=== PATIENT | female | born 1950 | race Caucasian/White ===

== ENCOUNTER 2016-06-30 16:04 | Inpatient (IN) | payer OTHER ==
[2016-06-30 21:13] LABS: HEMOGLOBIN 11.7 gm/dl (12.3-15.3); RED BLOOD COUNT 3.97 M/UL (4.00-5.10); WHITE BLOOD COUNT 9.3 K/UL (4.5-11.0)
[2016-06-30 21:42] LABS: BUN/CREATININE RATIO 13 (0-10)
[2016-06-30] MEDS ORDERED: NORVASC 5 MG TAB5 MG PO (21:44)
[2016-06-30] MEDS ORDERED: PLAVIX 75 MG TA75 MG PO (21:45)
[2016-06-30] MEDS ORDERED: ASPIRIN EC81 MG PO (21:45)
[2016-06-30] MEDS ORDERED: FLUPHENAZINE PO (21:46)
[2016-06-30] MEDS ORDERED: FLONASE 0.05% N16 GM (21:47)
[2016-06-30] MEDS ORDERED: LEVEMIR 10100 UNITS/ SQ (21:48)
[2016-06-30] MEDS ORDERED: COZAAR100 MG PO (21:49)
[2016-06-30] MEDS ORDERED: GLUCOPHAGE500 MG PO (21:49)
[2016-06-30] MEDS ORDERED: PROTONIX40 MG PO (21:50)
[2016-06-30] MEDS ORDERED: CRESTOR20 MG PO (21:50)
[2016-06-30] MEDS ORDERED: LOPRESSOR50 MG PO (21:50)
[2016-06-30] MEDS ORDERED: PROAIR HFA8.5 GM INH (21:52)
[2016-06-30] MEDS ORDERED: ZETIA10 MG PO (21:52)
[2016-06-30] MEDS ORDERED: HYZAAR 100-12.1 EACH PO (21:58)
[2016-07-01 05:59] LABS: BUN/CREATININE RATIO 14 (0-10)
[2016-07-01] MEDS ORDERED: LOSARTAN POTAS100 MG PO (08:53)
== END 2016-07-01 11:44 | disposition home or self-care (01) | DRG 643 ==
LOC: MED SURG 4 16:04
PROVIDERS: ADMIT Emergency Medicine
DX: E22.2 Syndrome of inappropriate secretion of antidiuretic hormone (principal); G93.41 Metabolic encephalopathy; N17.9 Acute kidney failure, unspecified; Q61.02 Congenital multiple renal cysts; T43.595A Adverse effect of other antipsychotics and neuroleptics, initial encounter; E11.65 Type 2 diabetes mellitus with hyperglycemia; J44.9 Chronic obstructive pulmonary disease, unspecified; I10 Essential (primary) hypertension; E78.5 Hyperlipidemia, unspecified; E53.8 Deficiency of other specified B group vitamins; I70.1 Atherosclerosis of renal artery; I65.29 Occlusion and stenosis of unspecified carotid artery; F32.9 Major depressive disorder, single episode, unspecified; Z87.891 Personal history of nicotine dependence; Z79.84 Long term (current) use of oral hypoglycemic drugs; Z79.02 Long term (current) use of antithrombotics/antiplatelets; Z79.82 Long term (current) use of aspirin; Z79.4 Long term (current) use of insulin; Z79.899 Other long term (current) drug therapy; Z88.3 Allergy status to other anti-infective agents; Z88.5 Allergy status to narcotic agent; Z98.890 Other specified postprocedural states; Z83.3 Family history of diabetes mellitus
CPT/HCPCS: 36415; 71020; 80048; 80053; 82043; 82570; 82962; 83036; 84300; 85027; J7030

== ENCOUNTER 2021-01-31 05:30 | Inpatient (IN) | payer MEDICARE, OTHER ==
[~2021-01-31] VITALS: Ht 165.1 cm; Wt 58.5 kg
[~2021-01-31 05:30] MED LIST: ASPIRIN EC81 MG PO; COZAAR100 MG PO; CRESTOR20 MG PO; FLONASE 0.05% N16 GM; FLUPHENAZINE PO; GLUCOPHAGE500 MG PO; HYZAAR 100-12.1 EACH PO; LEVEMIR 10100 UNITS/ SQ; LOPRESSOR50 MG PO; LOSARTAN POTAS100 MG PO; NORVASC5 MG PO; PERCOCET 10-321 EACH PO; PLAVIX 75 MG TA75 MG PO; PROAIR HFA8.5 GM INH; PROTONIX40 MG PO; ZETIA10 MG PO
[2021-01-31] MEDS ORDERED: AMIODARONE HCL200 MG PO (06:00)
[2021-01-31] MEDS ORDERED: ESCITALOPRAM OXA5 MG PO (06:01)
[2021-01-31] MEDS ORDERED: ATORVASTATIN CA40 MG PO (06:01)
[2021-01-31] MEDS ORDERED: BUMETANIDE0.5 MG PO (06:01)
[2021-01-31] MEDS ORDERED: LANTUS100 UNIT/1 SQ (06:02)
[2021-01-31] MEDS ORDERED: FLUPHENAZINE PO (06:02)
[2021-01-31] MEDS ORDERED: MELATONIN3 MG PO (06:03)
[2021-01-31] MEDS ORDERED: ALLERGY RELIEF10 M1 PO (06:03)
[2021-01-31] MEDS ORDERED: TRADJENTA5 MG PO (06:04)
[2021-01-31] MEDS ORDERED: MULTI-VITAMIN1 EACH PO (06:04)
[2021-01-31] MEDS ORDERED: VALSARTAN40 MG PO (06:04)
[2021-01-31] MEDS ORDERED: FISH OIL 1,0001 EAC1 PO (06:06)
[2021-01-31] MEDS ORDERED: ELIQUIS 2.5 MG2.5 MG PO (06:06)
[2021-01-31] MEDS ORDERED: VITAMIN D325 MCG PO (06:06)
[2021-01-31] MEDS ORDERED: FISH OIL 1,0001 EACH PO (06:07)
[2021-01-31] MEDS ORDERED: MEGESTROL400 MG/11 PO (06:08)
[2021-01-31] MEDS ORDERED: POTASSIUM CHLO20 ME1 PO (06:09)
[2021-01-31] MEDS ORDERED: HUMALOG100 UNIT/1 SC (06:10)
[2021-01-31] MEDS ORDERED: FERROUS SULFAT325 M2 PO (06:10)
[2021-01-31] MEDS ORDERED: HYDROCODON-ACE1 EAC4 PO (06:11)
[2021-01-31] MEDS ORDERED: ZOFRAN 4 MG TAB4 MG PO (06:11)
[2021-02-01 14:07] LABS: HEMOGLOBIN 8.7 gm/dl (12.3-15.3); RED BLOOD COUNT 2.85 M/UL (4.00-5.10); WHITE BLOOD COUNT 10.4 K/UL (4.5-11.0)
--- NOTE | 2021-02-01 15:08 | NUR ---
contacted dr. barros regarding patient's potassium level of 2.8. new order noted for k/mg protocol.
[2021-02-02 10:05] LABS: HEMOGLOBIN 8.9 gm/dl (12.3-15.3); RED BLOOD COUNT 2.87 M/UL (4.00-5.10); WHITE BLOOD COUNT 8.8 K/UL (4.5-11.0)
--- NOTE | 2021-02-02 10:58 | NUR ---
PATIENT HAD CRITICAL LAB OF POTASSIUM 2.7. LAB VALUE WAS REPORTED TO PROVIDER WHO ORDERED HER POTASSIUM TO BE REPLACED PER PROTOCOL. WILL CONTINUE TO MONITOR.
[2021-02-03 06:10] LABS: HEMOGLOBIN 9.1 gm/dl (12.3-15.3); RED BLOOD COUNT 2.96 M/UL (4.00-5.10); WHITE BLOOD COUNT 8.3 K/UL (4.5-11.0)
--- NOTE | 2021-02-03 17:19 | NUR ---
CALLED TO REPORT A BLOOD PRESSURE OF 135/103 TO DOCTOR LILIANA. SHE STATED "OK, LETS MONITOR IT." WILL CONTINUE TO MONITOR.
--- NOTE | 2021-02-03 21:07 | NUR ---
2030 FOUND PT IS VOMIT, LAID OVER ON HER SIDE SET UP SUCTION AND CLEARED MOUTH AND SAT HER UP STRAIGHT. PT SOUNDED WET. V/S BP 137/49 HR 102 RR [address] POPE NOTIFIED; ORDER FOR STAT CHEST XRAY, ABG, PRO BNP DR. MUÑIZ STOPPED IN AND ORDERED FLUIDS DC'D CRITICAL LABS REPORTED AND DR. POPE NOTIFIED. ORDER TO INCREASE OXYGEN AND TITRATE TO KEEP GREATER THAN 92%, AND 0.5MG ATIVAN PO ONE TIME. PT RR HAVE DECREASED TO 26/MIN AND 0.5 ATIVAN WILL BE GIVEN.
--- NOTE | 2021-02-03 22:30 | NUR ---
CRITICAL LACTIC 47.[address] MUÑIZ KETONES NEGATIVE. HR 73 O2 98% RR 32 BP 143/71 ORDERS: BLOOD CULTURES X2 UA MICROSCOPIC, URINE CULTURE. MERREM 1G Q8 FOR SEVERE SEPSIS PRESUMABLY LUNG, PHARMACY TO ADJUST DOSE NEEDED. DR. MUÑIZ ASK THAT I MAKE DR. POPE AWARE OF FINDINGS. I HAVE TRIED TO CALL HIM TWICE WITH NO ANSWER. WILL KEEP TRYING TO LET HIM KNOW THE ABOVE ORDERS FROM DR. MUÑIZ.
[2021-02-04 04:09] LABS: HEMOGLOBIN 8.4 gm/dl (12.3-15.3); RED BLOOD COUNT 2.74 M/UL (4.00-5.10); WHITE BLOOD COUNT 16.8 K/UL (4.5-11.0)
[2021-02-04 18:41] LABS: CAMPYLOBACTER Not Detected (Negative); E.COLI 0157 Not Detected (Negative); ENTEROAGGREGATIVE E.COLI (EAEC Not Detected (Negative); ENTEROPATHOGENIC E.COLI (EPEC) Not Detected (Negative); ENTEROTOXIGENIC E.COLI (ETEC) Not Detected (Negative); PLESIOMONAS SHIGELLOIDES Not Detected (Negative); SALMONELLA Not Detected (Negative); SHIGA-LIK TOX.PRO.E.COLI (STEC Not Detected (Negative); VIBRIO Not Detected (Negative); VIBRIO CHOLERAE Not Detected (Negative); YERSINIA ENTEROCOLITICA Not Detected (Negative)
[2021-02-04 18:42] LABS: ADENOVIRUS F 40/41 Not Detected (Negative); ASTROVIRUS Not Detected (Negative); CRYPTOSPORIDIUM Not Detected (Negative); ENTAMOEBA HISTOLYTICA Not Detected (Negative); GIARDIA LAMBLIA Not Detected (Negative); NOROVIRUS GI/GII Not Detected (Negative); ROTOVIRUS A Not Detected (Negative); SAPOVIRUS Not Detected (Negative); SHIG/ENTEROINVAS.ECOLI (EIEC) Not Detected (Negative)
[2021-02-05 06:48] LABS: HEMOGLOBIN 8.6 gm/dl (12.3-15.3); RED BLOOD COUNT 2.84 M/UL (4.00-5.10); WHITE BLOOD COUNT 13.1 K/UL (4.5-11.0)
[2021-02-05 10:06] LABS: CLOSTRIDIUM DIFFICILE TOX A/B DETECTED (Negative)
[2021-02-06 10:23] LABS: HEMOGLOBIN 9.6 gm/dl (12.3-15.3); RED BLOOD COUNT 3.11 M/UL (4.00-5.10); WHITE BLOOD COUNT 18.4 K/UL (4.5-11.0)
[2021-02-07 06:09] LABS: HEMOGLOBIN 7.8 gm/dl (12.3-15.3)
[2021-02-07 06:26] LABS: RED BLOOD COUNT 2.54 M/UL (4.00-5.10); WHITE BLOOD COUNT 13.2 K/UL (4.5-11.0)
[2021-02-08 06:07] LABS: RED BLOOD COUNT 2.59 M/UL (4.00-5.10)
[2021-02-09 07:40] LABS: HEMOGLOBIN 8.6 gm/dl (12.3-15.3); RED BLOOD COUNT 2.84 M/UL (4.00-5.10); WHITE BLOOD COUNT 14.4 K/UL (4.5-11.0)
[2021-02-10 05:34] LABS: RED BLOOD COUNT 2.92 M/UL (4.00-5.10); WHITE BLOOD COUNT 14.5 K/UL (4.5-11.0)
[2021-02-10 18:02] LABS: ADENOVIRUS F 40/41 Not Detected (Negative); ASTROVIRUS Not Detected (Negative); CAMPYLOBACTER Not Detected (Negative); CRYPTOSPORIDIUM Not Detected (Negative); E.COLI 0157 Not Detected (Negative); ENTAMOEBA HISTOLYTICA Not Detected (Negative); ENTEROAGGREGATIVE E.COLI (EAEC Not Detected (Negative); ENTEROPATHOGENIC E.COLI (EPEC) Not Detected (Negative); ENTEROTOXIGENIC E.COLI (ETEC) Not Detected (Negative); GIARDIA LAMBLIA Not Detected (Negative); NOROVIRUS GI/GII Not Detected (Negative); PLESIOMONAS SHIGELLOIDES Not Detected (Negative); ROTOVIRUS A Not Detected (Negative); SALMONELLA Not Detected (Negative); SAPOVIRUS Not Detected (Negative); SHIG/ENTEROINVAS.ECOLI (EIEC) Not Detected (Negative); SHIGA-LIK TOX.PRO.E.COLI (STEC Not Detected (Negative); VIBRIO Not Detected (Negative); VIBRIO CHOLERAE Not Detected (Negative); YERSINIA ENTEROCOLITICA Not Detected (Negative)
[2021-02-11 08:20] LABS: HEMOGLOBIN 7.4 gm/dl (12.3-15.3)
[2021-02-11 08:22] LABS: RED BLOOD COUNT 2.47 M/UL (4.00-5.10)
[2021-02-11 08:36] LABS: CLOSTRIDIUM DIFFICILE TOX A/B DETECTED (Negative)
--- NOTE | 2021-02-11 10:51 | NUR ---
0815 DR SIMS NOTIFIED OF PTS GLUCOSE OF 681 ORDERS NOTED 1020 RE GLUCOSE CHECK 147 DR SIMS AWARE
[2021-02-11 11:06] LABS: HEMOGLOBIN 8.3 gm/dl (12.3-15.3); RED BLOOD COUNT 2.69 M/UL (4.00-5.10); WHITE BLOOD COUNT 12.3 K/UL (4.5-11.0)
[2021-02-12 04:05] LABS: HEMOGLOBIN 7.2 gm/dl (12.3-15.3); WHITE BLOOD COUNT 13.9 K/UL (4.5-11.0)
[2021-02-12 04:06] LABS: RED BLOOD COUNT 2.35 M/UL (4.00-5.10)
[2021-02-13 07:26] LABS: HEMOGLOBIN 9.7 gm/dl (12.3-15.3); WHITE BLOOD COUNT 12.4 K/UL (4.5-11.0)
[2021-02-13 07:27] LABS: RED BLOOD COUNT 3.08 M/UL (4.00-5.10)
[2021-02-13] MEDS ORDERED: DIFICID 200 MG200 MG PO (10:52)
[2021-02-13] MEDS ORDERED: TYLENOL325 MG PO (11:08)
[2021-02-13] MEDS ORDERED: LEVOFLOXACIN500 MG PO (11:11)
--- NOTE | 2021-02-13 17:06 | NUR ---
ems leaving with pt at this time noted
== END 2021-02-13 17:04 | DRG 682 ==
LOC: CCU 05:30 → M/S 05:30 → CCU 05:50 → M/S 11:09
PROVIDERS: Internal Medicine; Internal Medicine Nephrology; ADMIT Internal Medicine
PROC: B24BZZZ Ultrasonography of Heart with Aorta (ICD-10-PCS; 2021-02-11)
PROC: 30233N1 Transfusion of Nonautologous Red Blood Cells into Peripheral Vein, Percutaneous Approach (ICD-10-PCS; principal; 2021-02-12)
DX: N17.0 Acute kidney failure with tubular necrosis (principal); A41.81 Sepsis due to Enterococcus; J18.9 Pneumonia, unspecified organism; R53.2 Functional quadriplegia; J96.21 Acute and chronic respiratory failure with hypoxia; N39.0 Urinary tract infection, site not specified; A04.72 Enterocolitis due to Clostridium difficile, not specified as recurrent; E44.0 Moderate protein-calorie malnutrition; I13.0 Hypertensive heart and chronic kidney disease with heart failure and stage 1 through stage 4 chronic kidney disease, or unspecified chronic kidney disease; E87.2 Acidosis; E87.3 Alkalosis; E87.1 Hypo-osmolality and hyponatremia; I48.92 Unspecified atrial flutter; Z20.822 Contact with and (suspected) exposure to COVID-19; B95.2 Enterococcus as the cause of diseases classified elsewhere; D50.9 Iron deficiency anemia, unspecified; K21.9 Gastro-esophageal reflux disease without esophagitis; L89.152 Pressure ulcer of sacral region, stage 2; D63.1 Anemia in chronic kidney disease; E11.22 Type 2 diabetes mellitus with diabetic chronic kidney disease; E87.5 Hyperkalemia; F20.9 Schizophrenia, unspecified; I48.91 Unspecified atrial fibrillation; F32.9 Major depressive disorder, single episode, unspecified; F41.9 Anxiety disorder, unspecified; G20 Parkinson's disease; F02.80 Dementia in other diseases classified elsewhere, unspecified severity, without behavioral disturbance, psychotic disturbance, mood disturbance, and anxiety; Z96.643 Presence of artificial hip joint, bilateral; I50.9 Heart failure, unspecified; I44.7 Left bundle-branch block, unspecified; E78.5 Hyperlipidemia, unspecified; N18.30 Chronic kidney disease, stage 3 unspecified; I27.20 Pulmonary hypertension, unspecified; I08.1 Rheumatic disorders of both mitral and tricuspid valves; Z79.4 Long term (current) use of insulin; Z79.01 Long term (current) use of anticoagulants; Z79.82 Long term (current) use of aspirin; Z86.73 Personal history of transient ischemic attack (TIA), and cerebral infarction without residual deficits; Z74.01 Bed confinement status; Z90.710 Acquired absence of both cervix and uterus
CPT/HCPCS: ECHO; 36415; 36430; 36600; 71045; 74150; 80048; 80053; 80202; 81001; 82009; 82140; 82270; 82272; 82550; 82553; 82607; 82746; 82803; 82962; 83036; 83540; 83550; 83605; 83735; 83880; 84100; 84132; 84133; 84300; 84439; 84443; 84484; 85018; 85025; 85027; 85045; 86140; 86850; 86900; 86901; 86920; 87040; 87077; 87086; 87186; 87324; 87449; 87507; 92526; 92610; 93005; 93306; 97110-GP-CQ; 97162; 97167; 97530; 97530-GP-CQ; A6212; J0290; J0696; J1335; J1940; J2185; J3370; J3480; J7050; J7070; P9016; P9047; U0002

== ENCOUNTER 2021-02-14 14:47 | Inpatient (IN) | payer MEDICARE, OTHER ==
[~2021-02-14] VITALS: Ht 165.1 cm; Wt 50.6 kg
[~2021-02-14 14:47] MED LIST changes: +ALLERGY RELIEF10 M1 PO; +AMIODARONE HCL200 MG PO; +ATORVASTATIN CA40 MG PO; +BUMETANIDE0.5 MG PO; +DIFICID 200 MG200 MG PO; +ELIQUIS 2.5 MG2.5 MG PO; +ESCITALOPRAM OXA5 MG PO; +FERROUS SULFAT325 M2 PO; +FISH OIL 1,0001 EAC1 PO; +FISH OIL 1,0001 EACH PO; +HUMALOG100 UNIT/1 SC; +HYDROCODON-ACE1 EAC4 PO; +LANTUS100 UNIT/1 SQ; +LEVOFLOXACIN500 MG PO; +MEGESTROL400 MG/11 PO; +MELATONIN3 MG PO; +MULTI-VITAMIN1 EACH PO; +POTASSIUM CHLO20 ME1 PO; +TRADJENTA5 MG PO; +TYLENOL325 MG PO; +VALSARTAN40 MG PO; +VITAMIN D325 MCG PO; +ZOFRAN 4 MG TAB4 MG PO
[2021-02-16 16:52] LABS: HEMOGLOBIN 9.7 gm/dl (12.3-15.3); RED BLOOD COUNT 3.09 M/UL (4.00-5.10); WHITE BLOOD COUNT 15.1 K/UL (4.5-11.0)
[2021-02-17 05:18] LABS: HEMOGLOBIN 9.1 gm/dl (12.3-15.3); RED BLOOD COUNT 2.9 M/UL (4.00-5.10); WHITE BLOOD COUNT 12.2 K/UL (4.5-11.0)
--- NOTE | 2021-02-17 16:01 | NUR ---
PATIENT HAD CRITICAL LAB POTASSIUM OF 2.9. PATIENTS MORNING LABS HAD ALSO COME BACK WITH A POTASSIUM LEVEL OF 2.9. SHE HAD RECIEVED POTASSIUM PROTOCOLL, GETTING 20MeQ AT 0600,0900, AND 1200 WITH A LAB CHECK AT 1400. PROVIDER WAS NOTIFIED AND ORDERED A RECHECK BEFOR ADMINISTERING MORE POTASSIUM.
[2021-02-18 07:31] LABS: HEMOGLOBIN 9.2 gm/dl (12.3-15.3); RED BLOOD COUNT 3.04 M/UL (4.00-5.10); WHITE BLOOD COUNT 12.2 K/UL (4.5-11.0)
[2021-02-19 06:24] LABS: HEMOGLOBIN 8.4 gm/dl (12.3-15.3); WHITE BLOOD COUNT 11.6 K/UL (4.5-11.0)
[2021-02-19 07:03] LABS: RED BLOOD COUNT 2.7 M/UL (4.00-5.10)
[2021-02-19] MEDS ORDERED: LASIX40 MG PO (12:43)
[2021-02-20 07:53] LABS: HEMOGLOBIN 8.2 gm/dl (12.3-15.3); RED BLOOD COUNT 2.67 M/UL (4.00-5.10); WHITE BLOOD COUNT 11.1 K/UL (4.5-11.0)
[2021-02-20] MEDS ORDERED: DOXYCYCLINE HY100 MG PO (13:27)
[2021-02-21 07:08] LABS: HEMOGLOBIN 8.5 gm/dl (12.3-15.3); RED BLOOD COUNT 2.75 M/UL (4.00-5.10); WHITE BLOOD COUNT 13.1 K/UL (4.5-11.0)
[2021-02-22 05:35] LABS: HEMOGLOBIN 8.9 gm/dl (12.3-15.3); RED BLOOD COUNT 2.86 M/UL (4.00-5.10); WHITE BLOOD COUNT 12.9 K/UL (4.5-11.0)
--- NOTE | 2021-02-22 06:34 | NUR ---
0634: NOTIFIED OF CRITCAL K+ RESULT BY LAB. PROTOCOL ALREADY ORDERED. WILL PASS ONTO AM RN TO REPLACE.
[2021-02-23 07:09] LABS: HEMOGLOBIN 8.8 gm/dl (12.3-15.3); RED BLOOD COUNT 2.87 M/UL (4.00-5.10); WHITE BLOOD COUNT 11.3 K/UL (4.5-11.0)
[2021-02-24 02:07] LABS: HEMOGLOBIN 9.1 gm/dl (12.3-15.3); RED BLOOD COUNT 2.92 M/UL (4.00-5.10); WHITE BLOOD COUNT 9.6 K/UL (4.5-11.0)
--- NOTE | 2021-02-24 03:22 | NUR ---
PT CRITICAL POTASSIUM OF 2.9. THIS RN NOTIFIED PROVIDER VIA TEXT AND STARTED POTASSIUM PROTOCOL PER MAR. 1 OF 3 POTASSIUM PROVIDED. NEXT DOSE AT 0600.
[2021-02-25 03:04] LABS: HEMOGLOBIN 10.9 gm/dl (12.3-15.3)
[2021-02-25 03:10] LABS: RED BLOOD COUNT 3.51 M/UL (4.00-5.10); WHITE BLOOD COUNT 12.6 K/UL (4.5-11.0)
[2021-02-26 06:47] LABS: HEMOGLOBIN 9.6 gm/dl (12.3-15.3); WHITE BLOOD COUNT 12.7 K/UL (4.5-11.0)
[2021-02-26 06:48] LABS: RED BLOOD COUNT 3.14 M/UL (4.00-5.10)
[2021-02-26 09:13] LABS: CREATININE, URINE 24.3 mg/dL (Not Estab.)
--- NOTE | 2021-02-26 14:51 | NUR ---
PATIENT HAD A TREAT AND EVAL WITH PT. BP WAS LOW WHILE SITTING AND PT CALLED NURSE AND TECH IN TO ASSIST WITH PATIENT. PATIENT HAD NEW ONSET PANTING AND BRADYCHARDIA. BP WAS 148/46 O2 SATS WERE 100. PATIENT WAS IN DISTRESS AND PROVIDER WAS NOTIFIED. PROVIDER PUT IN SEVERAL LABS FOR PATIENT INCLUDING ABG'S AND AN EKG. PROVIDER CAME TO SEE PATIENT AND EXAMINED HER. NURSE HAS BEEN TALKING WITH PROVIDER ABOUT PATIENT AND STAYING CLOSE TO PATIENT DURING THIS EPISODE. GAVE TYLENOL PER PROVIDERS ORDER AND STARTED PATIENT ON SCHEDULED ANTIBIOTIC. PATIENT HELD HER RIGHT HAND CLENCHED AND WAS OBSERVED BY PROVIDER. WILL CONTINUE TO MONITOR.
[2021-02-26 16:09] LABS: HEMOGLOBIN 10.4 gm/dl (12.3-15.3); RED BLOOD COUNT 3.41 M/UL (4.00-5.10); WHITE BLOOD COUNT 11.5 K/UL (4.5-11.0)
--- NOTE | 2021-02-27 02:06 | NUR ---
Patient has been yelling "oh, oh, oh" but she is only verbal intermittenly and was unable to tell me if or what was hurting. I thought she might have had a bowel movement. When I changed her she had a med bowel movement with severe excoriation to the groin, raul, anal, and buttock areas. The raul area is swollen and the patient had a very thick discharge. I washed her with soapy water and applied barrier cream. I will inform the dayshift nurse to be sure and check the area. I will call and inform the hospitalist for the need for nystatin power.
[2021-02-27 06:17] LABS: HEMOGLOBIN 10.1 gm/dl (12.3-15.3); RED BLOOD COUNT 3.37 M/UL (4.00-5.10); WHITE BLOOD COUNT 12.4 K/UL (4.5-11.0)
[2021-02-27 20:58] LABS: ADENOVIRUS F 40/41 Not Detected (Negative); ASTROVIRUS Not Detected (Negative); CAMPYLOBACTER Not Detected (Negative); CLOSTRIDIUM DIFFICILE TOX A/B Not Detected (Negative); CRYPTOSPORIDIUM Not Detected (Negative); E.COLI 0157 Not Detected (Negative); ENTAMOEBA HISTOLYTICA Not Detected (Negative); ENTEROAGGREGATIVE E.COLI (EAEC Not Detected (Negative); ENTEROPATHOGENIC E.COLI (EPEC) Not Detected (Negative); ENTEROTOXIGENIC E.COLI (ETEC) Not Detected (Negative); GIARDIA LAMBLIA Not Detected (Negative); NOROVIRUS GI/GII Not Detected (Negative); PLESIOMONAS SHIGELLOIDES Not Detected (Negative); ROTOVIRUS A Not Detected (Negative); SALMONELLA Not Detected (Negative); SAPOVIRUS Not Detected (Negative); SHIG/ENTEROINVAS.ECOLI (EIEC) Not Detected (Negative); SHIGA-LIK TOX.PRO.E.COLI (STEC Not Detected (Negative); VIBRIO Not Detected (Negative); VIBRIO CHOLERAE Not Detected (Negative); YERSINIA ENTEROCOLITICA Not Detected (Negative)
[2021-02-28 03:24] LABS: WHITE BLOOD COUNT 11.6 K/UL (4.5-11.0)
[2021-02-28 03:32] LABS: RED BLOOD COUNT 2.95 M/UL (4.00-5.10)
[2021-02-28 11:13] LABS: COMPLEMENT C3, SERUM 111 mg/dL (82-167); COMPLEMENT C4, SERUM 31 mg/dL (12-38)
[2021-02-28 13:13] LABS: ANTI-DSDNA ANTIBODIES <1 IU/mL (0-9)
[2021-03-01 04:51] LABS: HEMOGLOBIN 9.1 gm/dl (12.3-15.3); RED BLOOD COUNT 2.94 M/UL (4.00-5.10); WHITE BLOOD COUNT 12.6 K/UL (4.5-11.0)
[2021-03-02 03:04] LABS: HEMOGLOBIN 9.5 gm/dl (12.3-15.3); RED BLOOD COUNT 3.07 M/UL (4.00-5.10); WHITE BLOOD COUNT 12.1 K/UL (4.5-11.0)
[2021-03-03 09:27] LABS: HEMOGLOBIN 8.3 gm/dl (12.3-15.3); WHITE BLOOD COUNT 11.7 K/UL (4.5-11.0)
[2021-03-03 09:28] LABS: RED BLOOD COUNT 2.66 M/UL (4.00-5.10)
[2021-03-03 14:11] LABS: A/G RATIO 0.8 (0.7-1.7); ALBUMIN 2.8 g/dL (2.9-4.4); ALPHA-1-GLOBULIN 0.2 g/dL (0.0-0.4); ALPHA-2-GLOBULIN 1.1 g/dL (0.4-1.0); GAMMA GLOBULIN 1.2 g/dL (0.4-1.8); GLOBULIN, TOTAL 3.6 g/dL (2.2-3.9); IMMUNOGLOBULIN A, QN, SERUM 483 mg/dL (87-352); IMMUNOGLOBULIN G, QN, SERUM 1077 mg/dL (586-1602); IMMUNOGLOBULIN M, QN, SERUM 175 mg/dL (26-217); M-SPIKE Not Observed g/dL (Not Observed); PROTEIN, TOTAL, SERUM 6.4 g/dL (6.0-8.5)
[2021-03-03 16:11] LABS: ANTIMYELOPEROXIDASE (MPO) ABS <9.0 U/mL (0.0-9.0); ANTIPROTEINASE 3 (PR-3) ABS <3.5 U/mL (0.0-3.5); ATYPICAL PANCA <1:20 titer (Neg:<1:20); PERINUCLEAR (P-ANCA) <1:20 titer (Neg:<1:20)
[2021-03-04 03:10] LABS: HEMOGLOBIN 8.3 gm/dl (12.3-15.3); RED BLOOD COUNT 2.65 M/UL (4.00-5.10)
[2021-03-04 03:18] LABS: WHITE BLOOD COUNT 17.3 K/UL (4.5-11.0)
[2021-03-05 04:41] LABS: RED BLOOD COUNT 2.94 M/UL (4.00-5.10)
[2021-03-06 17:11] LABS: ATYPICAL PANCA <1:20 titer (Neg:<1:20); CYTOPLASMIC (C-ANCA) <1:20 titer (Neg:<1:20)
[2021-03-07 03:28] LABS: HEMOGLOBIN 8.3 gm/dl (12.3-15.3); RED BLOOD COUNT 2.71 M/UL (4.00-5.10); WHITE BLOOD COUNT 14.9 K/UL (4.5-11.0)
[2021-03-08 03:16] LABS: HEMOGLOBIN 8.4 gm/dl (12.3-15.3); RED BLOOD COUNT 2.73 M/UL (4.00-5.10); WHITE BLOOD COUNT 14.6 K/UL (4.5-11.0)
[2021-03-08] MEDS ORDERED: LOPRESSOR 25 MG25 MG PO (10:55)
[2021-03-08] MEDS ORDERED: HUMALOG 10100 UNITS/ SC (11:00)
[2021-03-08] MEDS ORDERED: LANTUS INS100 UTS/M1 SQ (11:00)
[2021-03-08] MEDS ORDERED: FERROUS SULFAT325 M2 PO (11:48)
[2021-03-08] MEDS ORDERED: AUGMENTIN 875-1 EACH PO (12:09)
[2021-03-08] MEDS ORDERED: FLUPHENAZINE PO (19:42)
[2021-03-09 01:43] LABS: HEMOGLOBIN 8.4 gm/dl (12.3-15.3); RED BLOOD COUNT 2.68 M/UL (4.00-5.10)
[2021-03-09 01:44] LABS: WHITE BLOOD COUNT 18.8 K/UL (4.5-11.0)
== END 2021-03-09 09:41 | DRG 280 ==
LOC: MED SURG 4 02-16 16:13 → PROG CARE 02-16 16:13
PROVIDERS: Internal Medicine; Internal Medicine Nephrology; ADMIT Internal Medicine
DX: I13.0 Hypertensive heart and chronic kidney disease with heart failure and stage 1 through stage 4 chronic kidney disease, or unspecified chronic kidney disease (principal); I21.A1 Myocardial infarction type 2; G93.41 Metabolic encephalopathy; J96.21 Acute and chronic respiratory failure with hypoxia; J18.9 Pneumonia, unspecified organism; I50.33 Acute on chronic diastolic (congestive) heart failure; R53.2 Functional quadriplegia; N17.9 Acute kidney failure, unspecified; E87.4 Mixed disorder of acid-base balance; E87.3 Alkalosis; E87.1 Hypo-osmolality and hyponatremia; A04.72 Enterocolitis due to Clostridium difficile, not specified as recurrent; I69.351 Hemiplegia and hemiparesis following cerebral infarction affecting right dominant side; Z20.822 Contact with and (suspected) exposure to COVID-19; L89.151 Pressure ulcer of sacral region, stage 1; I27.20 Pulmonary hypertension, unspecified; I45.81 Long QT syndrome; I48.0 Paroxysmal atrial fibrillation; I44.0 Atrioventricular block, first degree; E11.649 Type 2 diabetes mellitus with hypoglycemia without coma; E87.6 Hypokalemia; Z96.643 Presence of artificial hip joint, bilateral; K21.9 Gastro-esophageal reflux disease without esophagitis; J44.9 Chronic obstructive pulmonary disease, unspecified; D50.9 Iron deficiency anemia, unspecified; D63.1 Anemia in chronic kidney disease; F03.90 Unspecified dementia, unspecified severity, without behavioral disturbance, psychotic disturbance, mood disturbance, and anxiety; I95.9 Hypotension, unspecified; N18.30 Chronic kidney disease, stage 3 unspecified; E11.65 Type 2 diabetes mellitus with hyperglycemia; F20.9 Schizophrenia, unspecified; Z87.01 Personal history of pneumonia (recurrent); Z87.440 Personal history of urinary (tract) infections; Z99.81 Dependence on supplemental oxygen; Z79.01 Long term (current) use of anticoagulants; Z79.4 Long term (current) use of insulin; Z51.5 Encounter for palliative care; Z79.82 Long term (current) use of aspirin; Z90.710 Acquired absence of both cervix and uterus; Z88.1 Allergy status to other antibiotic agents; Z88.5 Allergy status to narcotic agent; Z88.8 Allergy status to other drugs, medicaments and biological substances; Z90.49 Acquired absence of other specified parts of digestive tract
CPT/HCPCS: 0240U; 36415; 36600; 70450; 70551; 71045; 71046; 80048; 80053; 80202; 81001; 82043; 82140; 82550; 82553; 82570; 82784; 82803; 82962; 83520; 83605; 83735; 83880; 84100; 84132; 84155; 84156; 84165; 84484; 85025; 85027; 85379; 86038; 86140; 86160; 86225; 86256; 86334; 87040; 87081; 87086; 87507; 92526; 92610; 93005; 93880; 93970; 94640; 94760; 94761; 97110; 97110-GP-CQ; 97162; 97164; 97167; 97530; 97530-GP-CQ; A6212; J0692; J1940; J3370; J3411; J3475; J3480; J7030; J7050; J7070; U0002

== ENCOUNTER 2021-05-02 15:30 | Inpatient (IN) | payer MEDICARE, OTHER ==
[~2021-05-02] VITALS: Ht 154.9 cm; Wt 50.8 kg
[~2021-05-02 15:30] MED LIST changes: +AUGMENTIN 875-1 EACH PO; +BUMEX IV 00.25 MG/ML IV; +DOXYCYCLINE HY100 MG PO; +HUMALOG 10100 UNITS/ SC; +LANTUS INS100 UTS/M1 SQ; +LASIX40 MG PO; +LOPRESSOR 25 MG25 MG PO
[2021-05-04 12:43] LABS: HEMOGLOBIN 10.2 gm/dl (12.3-15.3); RED BLOOD COUNT 3.4 M/UL (4.00-5.10); WHITE BLOOD COUNT 11.7 K/UL (4.5-11.0)
[2021-05-04] MEDS ORDERED: AMLODIPINE BESY10 MG PO (14:19)
[2021-05-04] MEDS ORDERED: BUDESONIDE0.5 MG/2 M INH (14:20)
[2021-05-04] MEDS ORDERED: CITALOPRAM HBR10 MG PO (14:22)
[2021-05-04] MEDS ORDERED: FERROUS SULFAT325 M2 PO (14:23)
[2021-05-04] MEDS ORDERED: LASIX TAB 20 MG20 MG PO (14:24)
[2021-05-04] MEDS ORDERED: GVOKE SYRI1 MG/0.2 M IM (14:26)
[2021-05-04] MEDS ORDERED: DEXTROSE 50% SY50 ML INJ (14:28)
[2021-05-04] MEDS ORDERED: LOPRESSOR 25 MG25 MG PO (14:32)
[2021-05-04] MEDS ORDERED: MIRTAZAPINE7.5 MG PO ×2 (14:32→14:33)
[2021-05-04] MEDS ORDERED: DAILY VALUE1 EACH PO (14:33)
[2021-05-04] MEDS ORDERED: OMEGA 3 1,0001 EACH PO (14:34)
[2021-05-05 05:17] LABS: HEMOGLOBIN 9.5 gm/dl (12.3-15.3); RED BLOOD COUNT 3.21 M/UL (4.00-5.10); WHITE BLOOD COUNT 10.5 K/UL (4.5-11.0)
[2021-05-05] MEDS ORDERED: HUMALOG100 UNIT/3 SC (13:50)
[2021-05-05] MEDS ORDERED: VITAMIN D325 MCG PO (14:17)
[2021-05-05] MEDS ORDERED: HYDROCODON-ACE1 EAC4 PO (14:22)
[2021-05-05] MEDS ORDERED: K-TAB ER10 MEQ PO (14:35)
[2021-05-05] MEDS ORDERED: FLUPHENAZINE PO (19:42)
[2021-05-07] MEDS ORDERED: OMNICEF 300 MG300 MG PO (15:00)
[2021-05-07] MEDS ORDERED: CLEOCIN HCL300 MG PO (15:06)
[2021-05-07] MEDS ORDERED: LACTINEX TABLET1 EA PO (15:06)
== END 2021-05-08 11:03 | DRG 193 ==
LOC: PROG CARE 05-04 10:27
PROVIDERS: Internal Medicine; ADMIT Internal Medicine
PROC: B24BZZZ Ultrasonography of Heart with Aorta (ICD-10-PCS; principal; 2021-05-05)
DX: J18.9 Pneumonia, unspecified organism (principal); J96.01 Acute respiratory failure with hypoxia; E43 Unspecified severe protein-calorie malnutrition; I13.0 Hypertensive heart and chronic kidney disease with heart failure and stage 1 through stage 4 chronic kidney disease, or unspecified chronic kidney disease; I50.32 Chronic diastolic (congestive) heart failure; N17.9 Acute kidney failure, unspecified; I48.20 Chronic atrial fibrillation, unspecified; E87.6 Hypokalemia; Z20.822 Contact with and (suspected) exposure to COVID-19; F20.9 Schizophrenia, unspecified; E11.22 Type 2 diabetes mellitus with diabetic chronic kidney disease; D50.9 Iron deficiency anemia, unspecified; N18.30 Chronic kidney disease, stage 3 unspecified; D63.1 Anemia in chronic kidney disease; R94.31 Abnormal electrocardiogram [ECG] [EKG]; F03.90 Unspecified dementia, unspecified severity, without behavioral disturbance, psychotic disturbance, mood disturbance, and anxiety; I44.7 Left bundle-branch block, unspecified; F41.9 Anxiety disorder, unspecified; Z96.643 Presence of artificial hip joint, bilateral; Z90.710 Acquired absence of both cervix and uterus; Z86.73 Personal history of transient ischemic attack (TIA), and cerebral infarction without residual deficits; Z79.4 Long term (current) use of insulin; Z79.01 Long term (current) use of anticoagulants; Z79.82 Long term (current) use of aspirin; Z74.01 Bed confinement status; Z68.20 Body mass index [BMI] 20.0-20.9, adult
CPT/HCPCS: ECHO; 36415; 71045; 80048; 80053; 81001; 82436; 82550; 82553; 82570; 82962; 83735; 83880; 84100; 84132; 84133; 84156; 84300; 84439; 84443; 84481; 84484; 85025; 85610; 86140; 93005; 93306; 94640; 94664; 94760; 97162; J0696; J7030; P9047; U0002

== ENCOUNTER 2021-05-12 16:10 | Inpatient (IN) | payer MEDICARE, OTHER ==
[~2021-05-12] VITALS: Ht 154.9 cm; Wt 50.3 kg
[~2021-05-12 16:10] MED LIST changes: +AMLODIPINE BESY10 MG PO; +BUDESONIDE0.5 MG/2 M INH; +CITALOPRAM HBR10 MG PO; +CLEOCIN HCL300 MG PO; +DAILY VALUE1 EACH PO; +DEXTROSE 50% SY50 ML INJ; +GVOKE SYRI1 MG/0.2 M IM; +HUMALOG100 UNIT/3 SC; +K-TAB ER10 MEQ PO; +LACTINEX TABLET1 EA PO; +LASIX TAB 20 MG20 MG PO; +MIRTAZAPINE7.5 MG PO; +OMEGA 3 1,0001 EACH PO; +OMNICEF 300 MG300 MG PO
[2021-05-14 16:10] LABS: HEMOGLOBIN 9.3 gm/dl (12.3-15.3); RED BLOOD COUNT 3.18 M/UL (4.00-5.10); WHITE BLOOD COUNT 10.9 K/UL (4.5-11.0)
[2021-05-15 03:42] LABS: HEMOGLOBIN 9.9 gm/dl (12.3-15.3); RED BLOOD COUNT 3.37 M/UL (4.00-5.10); WHITE BLOOD COUNT 10.1 K/UL (4.5-11.0)
[2021-05-17 03:21] LABS: HEMOGLOBIN 9.5 gm/dl (12.3-15.3); RED BLOOD COUNT 3.27 M/UL (4.00-5.10); WHITE BLOOD COUNT 9.1 K/UL (4.5-11.0)
[2021-05-19 03:15] LABS: HEMOGLOBIN 9.4 gm/dl (12.3-15.3); RED BLOOD COUNT 3.2 M/UL (4.00-5.10); WHITE BLOOD COUNT 9.4 K/UL (4.5-11.0)
[2021-05-20 04:28] LABS: HEMOGLOBIN 8.3 gm/dl (12.3-15.3); RED BLOOD COUNT 2.88 M/UL (4.00-5.10); WHITE BLOOD COUNT 8.1 K/UL (4.5-11.0)
[2021-05-21 03:01] LABS: HEMOGLOBIN 8.9 gm/dl (12.3-15.3); RED BLOOD COUNT 3.08 M/UL (4.00-5.10); WHITE BLOOD COUNT 7.3 K/UL (4.5-11.0)
[2021-05-22 03:14] LABS: HEMOGLOBIN 8.9 gm/dl (12.3-15.3); RED BLOOD COUNT 3.17 M/UL (4.00-5.10); WHITE BLOOD COUNT 7.9 K/UL (4.5-11.0)
[2021-05-23 07:58] LABS: RED BLOOD COUNT 3.21 M/UL (4.00-5.10); WHITE BLOOD COUNT 6.9 K/UL (4.5-11.0)
[2021-05-24 08:07] LABS: HEMOGLOBIN 9.2 gm/dl (12.3-15.3); RED BLOOD COUNT 3.18 M/UL (4.00-5.10); WHITE BLOOD COUNT 7.6 K/UL (4.5-11.0)
--- NOTE | 2021-05-24 21:05 | NUR ---
AT 1999 PT BECAME INCREASINGLY SHORT OF BREATH. CONTACTED. CXY AND ABG ORGERED ALONG WITH BIPAP. CXY SHOWED PULM EDEMA. MD ORDERED FOR PT TO BE INTUBATED.NEW 20 IV STARTED IN . 20 ETAMIDATE GIVEN AT 2036. 80 DIANNA GIVEN ALSO AT 2036. PT INTUBATED AT 2040, 22@LIP. EQUAL BREATH SOUNDS BILATERAL. SECOND CXY CONFIRMED PLACEMENT. DIPRIVAN STARTED AT 5MCG PER KG PER HOUR PER PROTOCOL. PT TRANSFERED TO CRITICAL CARE.
[2021-05-24 21:07] LABS: HEMOGLOBIN 9.6 gm/dl (12.3-15.3); RED BLOOD COUNT 3.32 M/UL (4.00-5.10); WHITE BLOOD COUNT 10.5 K/UL (4.5-11.0)
[2021-05-25 05:12] LABS: HEMOGLOBIN 11.6 gm/dl (12.3-15.3); RED BLOOD COUNT 4.03 M/UL (4.00-5.10); WHITE BLOOD COUNT 24.5 K/UL (4.5-11.0)
--- NOTE | 2021-05-25 12:35 | NUR ---
1106 SEE CODE RECORD NOTIFIED ALL MDS
== END 2021-05-25 14:30 | disposition expired | DRG 682 ==
LOC: PROG CARE 05-14 14:30 → CCU 05-24 21:10
PROVIDERS: Family Medicine; Internal Medicine; Internal Medicine Nephrology; Physician Assistant Medical; ADMIT Internal Medicine
PROC: 0BH17EZ Insertion of Endotracheal Airway into Trachea, Via Natural or Artificial Opening (ICD-10-PCS; 2021-05-24)
PROC: 5A1935Z Respiratory Ventilation, Less than 24 Consecutive Hours (ICD-10-PCS; 2021-05-24)
PROC: 5A12012 Performance of Cardiac Output, Single, Manual (ICD-10-PCS; principal; 2021-05-25)
PROC: 3E033XZ Introduction of Vasopressor into Peripheral Vein, Percutaneous Approach (ICD-10-PCS; 2021-05-25)
DX: N17.9 Acute kidney failure, unspecified (principal); L89.153 Pressure ulcer of sacral region, stage 3; Z20.822 Contact with and (suspected) exposure to COVID-19; Z66 Do not resuscitate; Z51.5 Encounter for palliative care; J69.0 Pneumonitis due to inhalation of food and vomit; J96.21 Acute and chronic respiratory failure with hypoxia; G93.41 Metabolic encephalopathy; I46.8 Cardiac arrest due to other underlying condition; R57.0 Cardiogenic shock; E44.0 Moderate protein-calorie malnutrition; I47.2 Ventricular tachycardia; I13.0 Hypertensive heart and chronic kidney disease with heart failure and stage 1 through stage 4 chronic kidney disease, or unspecified chronic kidney disease; I50.32 Chronic diastolic (congestive) heart failure; N30.00 Acute cystitis without hematuria; E87.2 Acidosis; Z16.21 Resistance to vancomycin; I48.20 Chronic atrial fibrillation, unspecified; E87.6 Hypokalemia; F20.9 Schizophrenia, unspecified; E87.5 Hyperkalemia; F32.A Depression, unspecified; F41.9 Anxiety disorder, unspecified; E11.22 Type 2 diabetes mellitus with diabetic chronic kidney disease; N18.30 Chronic kidney disease, stage 3 unspecified; Z96.643 Presence of artificial hip joint, bilateral; B95.2 Enterococcus as the cause of diseases classified elsewhere; E11.649 Type 2 diabetes mellitus with hypoglycemia without coma; I45.81 Long QT syndrome; I44.7 Left bundle-branch block, unspecified; F03.90 Unspecified dementia, unspecified severity, without behavioral disturbance, psychotic disturbance, mood disturbance, and anxiety; R13.10 Dysphagia, unspecified; D63.1 Anemia in chronic kidney disease; L89.616 Pressure-induced deep tissue damage of right heel; Z74.01 Bed confinement status; Z86.73 Personal history of transient ischemic attack (TIA), and cerebral infarction without residual deficits; Z79.01 Long term (current) use of anticoagulants; Z79.4 Long term (current) use of insulin; Z90.710 Acquired absence of both cervix and uterus; Z88.1 Allergy status to other antibiotic agents; Z88.5 Allergy status to narcotic agent; Z68.21 Body mass index [BMI] 21.0-21.9, adult
CPT/HCPCS: 0240U; 31500; 36415; 36600; 71045; 74018; 80048; 80053; 80076; 81001; 82140; 82550; 82553; 82803; 82962; 82977; 83036; 83605; 83615; 83735; 83880; 84100; 84132; 84439; 84443; 84484; 85025; 85027; 85610; 87040; 87077; 87086; 87186; 92526; 92610; 93005; 94002; 94003; 94640; 94664; 94760; A6212; J0171; J0610; J1205; J1335; J1940; J2020; J2060; J2270; J2370; J2704; J7030; J7070; P9047